=== PATIENT | female | born 1955 | race African-American/Black ===

== ENCOUNTER 2021-07-13 11:28 | Inpatient (IN) | payer MEDICARE, MEDICAID ==
[~2021-07-13] VITALS: Ht 162.6 cm; Wt 68.9 kg
[2021-07-13] MEDS ORDERED: ONDANSETRON HCL 4MG/2ML INJ IV STA (12:02)
[2021-07-13] MEDS ORDERED: PANTOPRAZOLE SODIUM 40 MG/VIAL IV STA (12:02)
[2021-07-13 12:11] LABS: BASOPHILS % 0.7 % (0.0-2.0); HEMATOCRIT. 43.6 % (36.0-48.0); HEMOGLOBIN. 14.8 g/dL (12.0-16.0); MEAN CORPUSCULAR HEMOGLOBIN 30.8 pg (28.0-32.0); MEAN CORPUSCULAR VOLUME 90.7 fL (81.0-99.0); MEAN PLATELET VOLUME 8.4 fl (7.4-10.4); MONOCYTES % 6.9 % (2.0-8.0); NEUTROPHILS % 80.4 % (40.0-76.0); PLATELET 301 x1000/uL (130-400); RED BLOOD CELL COUNT 4.81 mill/uL (4.2-5.4)
[2021-07-13 12:20] LABS: CHLORIDE 97 mEq/L (98-107)
[2021-07-13] MEDS ORDERED: SODIUM CHLORIDE 0.9% 1,000 ML IV ONE (12:30)
[2021-07-13 14:12] LABS: CLARITY URINE CLEAR (CLEAR); COLOR URINE YELLOW (YELLOW); KETONES URINE NEGATIVE (NEGATIVE); LEUKOCYTE ESTERASE URINE NEGATIVE (NEGATIVE); NITRITE URINE NEGATIVE (NEGATIVE); OCCULT BLOOD URINE NEGATIVE (NEGATIVE); PROTEIN URINE 1+ (NEGATIVE); SPECIFIC GRAVITY URINE 1.007 (1.005-1.030); UROBILINOGEN URINE 0.2 E.U./dL (0.2-1.0)
[2021-07-13] MEDS ORDERED: DEXTROSE 50% WATER 50ML SYRINGE IV ONE ×2 (15:00→16:38)
[2021-07-13] MEDS ORDERED: INSULIN REGULAR (HUMULIN R) 300UNITS/3ML VIAL IV ONE (15:00)
[2021-07-13] MEDS ORDERED: SODIUM POLYSTYRENE SULFONATE 15 G/60 ML BOT PO ONE (15:00)
[2021-07-13] MEDS ORDERED: SODIUM POLYSTYRENE SULFONATE 15 G/60 ML BOT PO NR (15:30)
[2021-07-13] MEDS ORDERED: ONDA4TAB5 MT (15:55)
[2021-07-13] MEDS ORDERED: METOCLOPRAMIDE HCL 10MG/2ML VIAL IV ONE (16:30)
[2021-07-13] MEDS ORDERED: CALCIUM GLUCONATE 100MG/ML 10ML VIAL IV ONE (17:15)
[2021-07-13 17:43] LABS: CHLORIDE 105 mEq/L (98-107)
[2021-07-13] MEDS ORDERED: MAGNESIUM 1 G PREMIX 100 ML IV ONE (18:30)
[2021-07-13] MEDS ORDERED: POTASSIUM CHLORIDE 20MEQ TABLET SR PO NR (21:45)
[2021-07-13] MEDS ORDERED: LISI-186 MT (23:12)
[2021-07-13] MEDS ORDERED: AMLO10TA80 MT (23:12)
[2021-07-13] MEDS ORDERED: DOCUSATE SODIUM 100MG CAPSULE PO PRN (23:15)
[2021-07-13] MEDS ORDERED: CLONIDINE 0.1MG TABLET PO PRN (23:15)
[2021-07-13] MEDS ORDERED: POTASSIUM CHLORIDE INJ 40 MEQ in DEXT 5% WATER 250 ML IV ONE (23:15)
[2021-07-13] MEDS ORDERED: ONDANSETRON HCL 4MG/2ML INJ IV PRN (23:45)
[2021-07-13] MEDS: ONDANSETRON HCL 4MG/2ML INJ IV PRN (23:55)
[2021-07-14] VITALS (7 sets, daily range): BP systolic 101–154; BP diastolic 63–98
[2021-07-14] MEDS: LEVOFLOXACIN 500MG PREMIX 100 ML IV SCH (01:29)
[2021-07-14] MEDS: KCL 20MEQ/100ML PREMIX 100 ML IV SCH ×2 (01:29→02:31)
[2021-07-14] MEDS: ENOXAPARIN 40MG/0.4ML SYR SUBCUT SCH ×2 (01:30→21:16)
[2021-07-14] MEDS ORDERED: POTASSIUM CHLORIDE 20MEQ TABLET SR PO NR (03:00)
[2021-07-14] MEDS: ONDANSETRON HCL 4MG/2ML INJ IV PRN ×4 (04:00→21:16)
[2021-07-14] MEDS: AMLODIPINE 10MG TABLET PO SCH (08:51)
[2021-07-14 09:50] LABS: HEMOGLOBIN 13.1 g/dL (12.0-16.0); MEAN CORPUSCULAR HEMOGLOBIN 32.2 pg (28.0-32.0); MEAN CORPUSCULAR VOLUME 90.8 fL (81.0-99.0); PLATELET 254 x1000/uL (130-400); RED BLOOD CELL COUNT 4.08 mill/uL (4.2-5.4); RED CELL DISTRIBUTION WIDTH 15.1 % (11.6-14.6)
[2021-07-14 10:03] LABS: CHLORIDE 102 mEq/L (98-107)
[2021-07-14] MEDS ORDERED: MAGNESIUM/ALUMINUM HYDROXIDE/SIMETHICONE 30ML UDC PO PRN (14:00)
[2021-07-14] MEDS ORDERED: IPRATROPIUM/ALBUTEROL 0.5-3(2.5)MG/3ML NEB HHN PRN (14:00)
[2021-07-14] MEDS ORDERED: SODIUM CHL 0.9% + KCL 20MEQ/L 1,000 ML IV SCH (15:30)
[2021-07-14] MEDS ORDERED: POTASSIUM CHLORIDE INJ 20 MEQ in SODIUM CHLORIDE 0.9% 1,000 ML IV SCH (16:00)
[2021-07-14] MEDS ORDERED: POTASSIUM CHLORIDE INJ 40 MEQ in DEXT 5% WATER 250 ML IV SCH (16:00)
[2021-07-14] MEDS ORDERED: MAGNESIUM 1 G PREMIX 100 ML IV SCH (16:00)
[2021-07-14] MEDS ORDERED: POTASSIUM CHLORIDE INJ 40 MEQ in DEXT 5% WATER 250 ML IV ONE (16:00)
[2021-07-14] MEDS: ACETAMINOPHEN 325MG TABLET PO PRN (21:15)
[2021-07-14] MEDS: ZOLPIDEM TARTRATE 5MG TABLET PO PRN (21:16)
[2021-07-15] VITALS: BP 108/80
[2021-07-15] MEDS: LEVOFLOXACIN 500MG PREMIX 100 ML IV SCH (01:21)
[2021-07-15 04:00] VITALS: BP 104/75
[2021-07-15] MEDS: ONDANSETRON HCL 4MG/2ML INJ IV PRN (04:51)
[2021-07-15 05:41] LABS: METHADONE URINE SCREEN NEGATIVE (NEGATIVE); OPIATES URINE SCREEN PRESUMTIVE POSITIVE (NEGATIVE)
[2021-07-15 05:42] LABS: *AMPHETAMINES SCREEN URINE NEGATIVE (NEGATIVE); *BARBITURATES SCREEN URINE NEGATIVE (NEGATIVE); *BENZODIAZEPINES SCREEN URINE NEGATIVE (NEGATIVE); *COCAINE SCREEN URINE NEGATIVE (NEGATIVE); CANNABINOID URINE SCREEN PRESUMTIVE POSITIVE (NEGATIVE); PHENCYCLIDINE URINE SCREEN NEGATIVE (NEGATIVE)
[2021-07-15] MEDS ORDERED: SODIUM CHL 0.9% + KCL 20MEQ/L 1,000 ML IV SCH (07:00)
[2021-07-15 07:25] LABS: BASOPHILS % 0.1 % (0.0-2.0); EOSINOPHILS % 0.3 % (0.0-5.0); HEMATOCRIT. 34.9 % (36.0-48.0); LYMPHOCYTES % 21.8 % (20.0-50.0); MEAN CORPUSCULAR HEMOGLOBIN 31.9 pg (28.0-32.0); MEAN CORPUSCULAR VOLUME 92.3 fL (81.0-99.0); MEAN PLATELET VOLUME 8.5 fl (7.4-10.4); MONOCYTES % 9.7 % (2.0-8.0); NEUTROPHILS % 68.1 % (40.0-76.0); PLATELET 240 x1000/uL (130-400); RED BLOOD CELL COUNT 3.78 mill/uL (4.2-5.4); RED CELL DISTRIBUTION WIDTH 14.8 % (11.6-14.6)
[2021-07-15 08:00] VITALS: BP 127/93
[2021-07-15 08:02] LABS: CHLORIDE 104 mEq/L (98-107)
[2021-07-15 08:06] LABS: AMYLASE 78 IU/L (25-115)
[2021-07-15 08:08] LABS: PHOSPHORUS 2.6 mg/dL (2.5-4.9)
[2021-07-15] MEDS: PANTOPRAZOLE SODIUM 40 MG/VIAL IV SCH (09:33)
[2021-07-15] MEDS: AMLODIPINE 10MG TABLET PO SCH (09:33)
[2021-07-15 12:00] VITALS: BP 132/77
[2021-07-15 16:00] VITALS: BP 146/80
[2021-07-15] MEDS ORDERED: POTASSIUM CHLORIDE INJ 20 MEQ in SODIUM CHLORIDE 0.9% 1,000 ML IV SCH (16:00)
[2021-07-15 18:42] LABS: HEPATITIS B SURFACE ANTIGEN NEGATIVE
[2021-07-15 20:00] VITALS: BP 113/77
[2021-07-15] MEDS ORDERED: POTASSIUM CHLORIDE 20MEQ TABLET SR PO NR (20:00)
[2021-07-15] MEDS: ACETAMINOPHEN 325MG TABLET PO PRN (20:23)
[2021-07-15] MEDS: ZOLPIDEM TARTRATE 5MG TABLET PO PRN (21:21)
[2021-07-15 21:24] LABS: INR 1.1; PROTHROMBIN TIME 11.4 sec (9.6-11.0)
[2021-07-16] VITALS (8 sets, daily range): BP systolic 120–131; BP diastolic 82–93
[2021-07-16] MEDS: LEVOFLOXACIN 500MG PREMIX 100 ML IV SCH (01:12)
[2021-07-16 07:17] LABS: CHLORIDE 106 mEq/L (98-107)
[2021-07-16 07:24] LABS: PHOSPHORUS 3.3 mg/dL (2.5-4.9)
[2021-07-16 07:25] LABS: BASOPHILS % 0.1 % (0.0-2.0); EOSINOPHILS % 0.5 % (0.0-5.0); HEMATOCRIT. 37.8 % (36.0-48.0); LYMPHOCYTES % 29.7 % (20.0-50.0); MEAN CORPUSCULAR HEMOGLOBIN 31.8 pg (28.0-32.0); MEAN CORPUSCULAR VOLUME 92.8 fL (81.0-99.0); MONOCYTES % 9.5 % (2.0-8.0); NEUTROPHILS % 60.2 % (40.0-76.0); PLATELET 259 x1000/uL (130-400); RED BLOOD CELL COUNT 4.07 mill/uL (4.2-5.4)
[2021-07-16] MEDS: PANTOPRAZOLE SODIUM 40 MG/VIAL IV SCH (09:21)
[2021-07-16] MEDS: AMLODIPINE 10MG TABLET PO SCH (09:21)
[2021-07-16] MEDS ORDERED: MAGNESIUM 1 G PREMIX 100 ML IV NR (13:00)
[2021-07-16] MEDS ORDERED: PANT40SU MT (16:27)
[2021-07-16] MEDS ORDERED: LEVO500T89 MT (16:27)
== END 2021-07-16 20:50 | disposition home or self-care (01) | DRG 368 ==
LOC: ER 11:28 → 7EST 18:18 → EDBEDREQ 18:34 → EDBEDREQTM 18:34 → ENRESERV 21:28
PROVIDERS: ADMIT Internal Medicine; ATTEND Internal Medicine
DX: K22.6 Gastro-esophageal laceration-hemorrhage syndrome (principal); K85.90 Acute pancreatitis without necrosis or infection, unspecified; N39.0 Urinary tract infection, site not specified; R73.9 Hyperglycemia, unspecified; K76.0 Fatty (change of) liver, not elsewhere classified; E87.6 Hypokalemia; E87.5 Hyperkalemia; I10 Essential (primary) hypertension; N95.1 Menopausal and female climacteric states; Z20.822 Contact with and (suspected) exposure to COVID-19; T43.225A Adverse effect of selective serotonin reuptake inhibitors, initial encounter; Z79.899 Other long term (current) drug therapy; Z87.891 Personal history of nicotine dependence; Y92.89 Other specified places as the place of occurrence of the external cause; G90.9 Disorder of the autonomic nervous system, unspecified; D72.829 Elevated white blood cell count, unspecified
CPT/HCPCS: 36415; 71045; 76700; 80048; 80053; 80061; 80076; 80305; 81003; 82150; 82962; 83735; 84100; 84132; 84443; 84484; 85025; 85027; 86705; 86709; 86803; 87340; 87426; 93005; 93306; 93880; 93970; 99291; C9113; J0610; J1650; J1815; J1956; J2405; J2765; J3475; J3480; J7030; J7040; J7060

== ENCOUNTER 2024-05-18 19:58 | Emergency (ER) | payer MEDICARE, MEDICAID ==
[~2024-05-18] VITALS: Ht 167.6 cm; Wt 80.0 kg
[~2024-05-18 19:58] MED LIST: AMLO10TA80 MT; LEVO-65 MT; LISI-186 MT; ONDA4TAB5 MT; PANT40SU MT
[2024-05-18 20:00] VITALS: TEMP 97.7; O2SAT 100
[2024-05-19 01:46] LABS: BASOPHILS % 0.6 % (0.0-2.0); CHLORIDE 108 mEq/L (98-107); EOSINOPHILS % 0.6 % (0.0-5.0); HEMATOCRIT. 35.6 % (36.0-48.0); HEMOGLOBIN. 12.4 g/dL (12.0-16.0); LYMPHOCYTES % 24.2 % (20.0-50.0); MEAN CORPUSCULAR HEMOGLOBIN 30.9 pg (28.0-32.0); MEAN CORPUSCULAR HGB CONC 34.9 g/dL (31.0-37.0); MEAN CORPUSCULAR VOLUME 88.5 fL (81.0-99.0); MEAN PLATELET VOLUME 7.4 fl (7.4-10.4); MONOCYTES % 7.1 % (2.0-8.0); NEUTROPHILS % 67.5 % (40.0-76.0); PLATELET 323 x1000/uL (130-400); POTASSIUM 3.5 mEq/L (3.5-5.1); RED BLOOD CELL COUNT 4.02 mill/uL (4.2-5.4); RED CELL DISTRIBUTION WIDTH 13.9 % (11.6-14.6); SODIUM 141 mEq/L (136-145); WHITE BLOOD COUNT 8.7 x1000/uL (4.5-11.0)
[2024-05-19 01:48] LABS: CALCIUM 9.5 mg/dL (8.7-10.4); CARBON DIOXIDE 26 mEq/L (21-32)
[2024-05-19 01:52] LABS: CREATININE 1.1 mg/dL (0.6-1.0); GLUCOSE 107 mg/dL (70-105); UREA NITROGEN BLOOD 8 mg/dL (9-23)
[2024-05-19 01:54] LABS: ALANINE AMINOTRANSFERASE 10 IU/L (10-49); ALBUMIN 4.3 g/dL (3.2-4.8); ASPARTATE AMINOTRANSFERASE 21 IU/L (<34); BILIRUBIN DIRECT 0.3 mg/dL (<=3.0); BILIRUBIN TOTAL 1.1 mg/dL (0.1-1.0); PROTEIN TOTAL 6.6 g/dL (6.0-8.3); TROPONIN I HIGH SENSITIVITY < 4 ng/L (3.0-34)
[2024-05-19 03:44] VITALS: BP 122/76; PULSE 70; RESP 17; O2SAT 95
== END 2024-05-19 05:06 | disposition left against medical advice (07) ==
LOC: ER 19:58 → EDBEDREQ 05-19 03:41 → EDBEDREQTM 05-19 03:41 → ER 05-19 05:06 → CANBEDREQ 05-19 09:51
DX: R55 Syncope and collapse (principal); I10 Essential (primary) hypertension; Z88.5 Allergy status to narcotic agent; Z86.73 Personal history of transient ischemic attack (TIA), and cerebral infarction without residual deficits
CPT/HCPCS: 36415; 71045; 80048; 80076; 83605; 83880; 84484; 85025; 93005; 99285